=== PATIENT | female | born 1975 | race Caucasian/White ===

== ENCOUNTER 2019-03-29 21:34 | Emergency (ER) | payer SELFPAY ==
[~2019-03-29] VITALS: Ht 175.3 cm; Wt 115.7 kg
[2019-03-29 21:45] VITALS: BP 151/91
[2019-03-29] MEDS: ACETAMINOPHEN 325 MG TABLET PO ONE ×2 (21:59→22:00)
--- NOTE | 2019-03-29 22:00 | PHYS DOC ---
Past History Past Medical History: No Pertinent History, Other Past Surgical History: Cholecystectomy, Tubal ligation, Other Alcohol Use: None Drug Use: None Adult General Chief Complaint Chief Complaint: LOWEREXTREMITY INJURY HPI HPI Patient is a 44-year-old female who presents to the emergency department for evaluation of the left foot injury. She states that yesterday, she stubbed her left second toe while walking up her stairs, and in catching her balance twisted her left foot. He is complaining of pain along the medial aspect of her foot, as well as the second toe. She denies any other injuries. She denies any numbness or weakness, ambulation and palpation worsen her pain. There are no alleviating factors to her symptoms. Review of Systems Review of Systems Constitutional: Denies fever or chills [] Musculoskeletal: Denies back pain or joint pain , except as noted in the history of present illness[] Integument: Denies rash or skin lesions [] Neurologic: Denies focal weakness or sensory changes [] Current Medications Current Medications Current Medications Medications (Trade) Dose Ordered Sig/Bravo Start Time Stop Time Status Last Admin Dose Admin Acetaminophen (Tylenol) 650 mg 1X ONCE 03/29/19 22:00 03/29/19 22:01 UNV Allergies Allergies Allergies Coded Allergies Type Severity Reaction Last Updated Verified NSAIDS (Non-Steroidal Anti-Inflamma Allergy Severe Anaphylaxis 03/29/19 Yes codeine Allergy Mild HIVES 03/29/19 Yes tramadol Allergy Mild HIVES 03/29/19 Yes Physical Exam Physical Exam PHYSICAL EXAM: HEENT: Atruamatic NECK: Supple, normal ROM, non-tender. CARDIAC: Regular Rate and Rhythm LUNGS: Clear Bilaterally EXTREMITIES: There is mild tenderness to palpation to the left second toe, along with the medial aspect of the foot over the medial cuneiform bone. There is no deformity or significant soft tissue swelling, bruising, or other lesions noted. Distal PMS are intact. The ankle is nontender, the remainder the extremities are unremarkable and atraumatic. Current Patient Data Vital Signs Vital Signs Date Time Temp Pulse Resp B/P (MAP) Pulse Ox O2 Delivery O2 Flow Rate FiO2 03/29/19 21:45 98.2 88 18 99 Room Air EKG EKG [] Radiology/Procedures Radiology/Procedures [PROCEDURE: FOOT LEFT 3V FOOT LEFT 3V History: Left foot injury Comparison: None. Findings: 3 views left foot are submitted. There is some subtle lucency of the medial aspect of the navicular bone extending posteriorly although difficult to visualize on other views. There is small plantar calcaneal enthesophyte. Impression: 1. There is subtle lucency medial navicular bone only well visualized on one view, nondisplaced fracture difficult to exclude by radiographs for which correlation with site of pain is advised.] Course & Med Decision Making Course & Med Decision Making Pertinent Imaging studies reviewed. (See chart for details) []10:35 PM: Patient's condition remained stable. Unable to definitively exclude fracture, although clinically this is not highly suspected. However, the patient will be treated conservatively with an Evan wrap, postop shoe, pain medicine and orthopedic referral. Dragon Disclaimer Dragon Disclaimer This electronic medical record was generated, in whole or in part, using a voice recognition dictation system. Departure Departure: Impression: Primary Impression: Foot injury Disposition: HOME, SELF-CARE Condition: STABLE Referrals: PCP,NO (PCP) Patient Instructions: Foot Fracture, Foot Sprain, RICE - Routine Care for Injuries Additional Instructions: Follow-up with Dr. Bonner, orthopedics, at [phone]. Please call tomorrow to schedule an appointment. Scripts Hydrocodone Bit/Acetaminophen (NORCO 5-325 TABLET) 1 Each Tablet 1 TAB PO TID PRN for PAIN, #10 TAB Prov: SCOTT KRAFT MD 03/29/19 SCOTT KRAFT MD Mar 29, 2019 22:00
[2019-03-29] MEDS ORDERED: HYDROcodone/APAP 5/325MG 1 TAB TABLET PO ONE (22:15)
--- NOTE | 2019-03-29 22:34 | RAD ---
FOOT LEFT 3V History: Left foot injury Comparison: None. Findings: 3 views left foot are submitted. There is some subtle lucency of the medial aspect of the navicular bone extending posteriorly although difficult to visualize on other views. There is small plantar calcaneal enthesophyte. Impression: 1. There is subtle lucency medial navicular bone only well visualized on one view, nondisplaced fracture difficult to exclude by radiographs for which correlation with site of pain is advised. Electronically signed by: Fred Quiñonez MD (03/29/2019 10:31 PM) [facility]
[2019-03-29] MEDS ORDERED: HYDR-3165 PO (22:51)
== END 2019-03-29 22:54 | disposition home or self-care (01) ==
LOC: ER 21:34
DX: S99.922A Unspecified injury of left foot, initial encounter (principal); Z88.6 Allergy status to analgesic agent; Z88.5 Allergy status to narcotic agent; X50.1XXA Overexertion from prolonged static or awkward postures, initial encounter; Y93.01 Activity, walking, marching and hiking; Y92.89 Other specified places as the place of occurrence of the external cause; Y99.8 Other external cause status
CPT/HCPCS: 73630; 99284